=== PATIENT | male | born 1980 | race Hispanic/Latino ===

== ENCOUNTER 2023-08-23 06:07 | Day surgery (SDC) | payer OTHER ==
[2023-08-16 09:29] VITALS: BMI 33.7
[2023-08-23] MEDS ORDERED: Sodium Chloride 0.9% 100 ML ONE (06:35)
[2023-08-23] MEDS ORDERED: CEFAZOLIN 2 GM VIAL ONE (06:35)
[2023-08-23] MEDS ORDERED: Bupivacaine PF 0.5% 30 ML VIAL ONE (06:37)
[2023-08-23] MEDS ORDERED: EPINEPHrine 1 MG/ML VIAL ONE (06:37)
[2023-08-23] MEDS ORDERED: PROPOFOL 20 ML ONE (06:41)
[2023-08-23] MEDS ORDERED: fentaNYL PF 100 MCG/2 ML SYRINGE ONE (06:41)
[2023-08-23] MEDS ORDERED: Ondansetron PF 4 MG/2 ML Vial ONE ×2 (06:41→08:50)
[2023-08-23] MEDS ORDERED: Dexamethasone 20 MG/5 ML VIAL ONE (06:41)
[2023-08-23] MEDS ORDERED: Midazolam HCl 2 mg/2 ml Vial ONE ×2 (06:41→07:03)
[2023-08-23] MEDS ORDERED: Lidocaine 1% PF 5 ML VIAL ONE (06:41)
[2023-08-23] MEDS ORDERED: Lidocaine 2% 6 ML (Jelly) SYR ONE (06:43)
[2023-08-23] MEDS ORDERED: Sevoflurane 250 ML INH ANEST BOTTLE ONE (06:45)
[2023-08-23] MEDS ORDERED: Acetaminophen 500 MG TAB ONE (07:03)
[2023-08-23] MEDS ORDERED: Famotidine/PF 20 mg/2ml Vial ONE (07:04)
[2023-08-23] MEDS ORDERED: ePHEDrine Sulfate 50 MG/10 ML VIAL ONE (07:44)
[2023-08-23] MEDS ORDERED: Succinylcholine 200 MG/10 ml SYRINGE FS ONE (07:46)
[2023-08-23] MEDS ORDERED: Ketorolac Tromethamine 30 MG (1 mL) VIAL ONE (07:57)
[2023-08-23] MEDS ORDERED: fentaNYL 50 mcg/mL 1 mL Vial ONE (08:50)
[2023-08-23] MEDS ORDERED: oxyCODONE 5 MG TAB ONE (09:54)
== END 2023-08-23 10:45 | disposition home or self-care (01) ==
LOC: SDC 06:07
PROVIDERS: ATTEND Surgery
PROC: 0WUF0JZ Supplement Abdominal Wall with Synthetic Substitute, Open Approach (ICD-10-PCS; principal; 2023-08-23)
DX: K42.9 Umbilical hernia without obstruction or gangrene (principal)
CPT/HCPCS: C1889; J0171; J1100; J1885; J2250; J2405; J2704; J3010; J3490; S0020; S0028

== ENCOUNTER 2025-08-09 02:53 | Inpatient (IN) | payer OTHER, SELFPAY ==
[2025-08-09] MEDS ORDERED: Calcium Carbonate 500 MG ChewTAB PO PRN (04:27)
[2025-08-09] MEDS ORDERED: Ondansetron PF 4 MG/2 ML Vial IVP PRN (04:27)
[2025-08-09] MEDS ORDERED: Melatonin 3 MG TAB PO PRN (04:27)
[2025-08-09] MEDS ORDERED: Guaifenesin DM 100-10/5 ML UDCUP PO PRN (04:27)
[2025-08-09] MEDS ORDERED: Electrolyte Replacement Protocol 1 EACH FS SCH (04:30)
[2025-08-09] MEDS: Acetaminophen/Codeine 30-300mg Tablet PO PRN (04:56)
[2025-08-09 05:21] LABS: #Basophils 0.05 10x3/uL (0.0-0.2); #Eosinophils 0.26 10x3/uL (0.0-0.7); #Monocytes 2.31 10x3/uL (0.11-0.59); #Neutrophils 18.01 10x3/uL (1.40-6.50); %Basophils 0.2 % (0.0-1.0); %Eosinophils 1.2 % (0.0-10.0); %Lymphocytes 6.0 % (21.0-51.0); %Monocytes 10.3 % (0.0-10.0); %Neutrophils 80.7 % (42.0-75.0); Hematocrit 38.0 % (42.0-52.0); Hemoglobin 13.0 g/dL (14.0-18.0); Mean Corpuscular Hemoglobin 31.2 pg (27.0-31.0); Mean Corpuscular Volume 91.1 fL (78.0-98.0); Platelet Count 326 10x3/uL (130-400); Red Blood Cell (RBC) Count 4.17 mill/uL (4.70-6.10); White Blood Cell (WBC) Count 22.34 10x3/uL (4.8-10.8)
[2025-08-09 05:35] LABS: ALT (SGPT) 11 U/L (Less than 45); AST (SGOT) 15 U/L (11-34); Albumin 2.8 g/dL (3.1-4.5); Alkaline Phosphatase 112 U/L (40-110); Anion Gap 14 mmol/L (10-20); BUN (Urea Nitrogen) 8 mg/dL (8.9-20.6); Bilirubin, Total 0.9 mg/dL (0.3-1.2); Calc. Creatinine Clearance 188 mL/min (70-130); Calcium 8.4 mg/dL (7.8-10.44); Carbon Dioxide 23 mmol/L (22-29); Chloride 106 mmol/L (98-107); Globulin 3.8 g/dL (2.4-3.5); Glucose 113 mg/dL (70-105); Potassium 3.8 mmol/L (3.5-5.1); Sodium 139 mmol/L (136-145)
[2025-08-09] MEDS ORDERED: Potassium Chloride 20 MEQ in Premix 1 BAG IVPB PRN (05:45)
[2025-08-09] MEDS ORDERED: PHOS-NAK 1 PKT PACK PO PRN (05:45)
[2025-08-09] MEDS ORDERED: Magnesium Sulfate In Water 4 GM in Premix 1 BAG IVPB PRN (05:45)
[2025-08-09] MEDS: BIKTARVY 50-200-25 MG TABLET PO SCH (08:21)
[2025-08-09 13:00] LABS: Reference Lab Name LABCORP
[2025-08-10 05:10] LABS: #Basophils 0.04 10x3/uL (0.0-0.2); #Eosinophils 0.39 10x3/uL (0.0-0.7); #Monocytes 2.40 10x3/uL (0.11-0.59); #Neutrophils 17.63 10x3/uL (1.40-6.50); %Basophils 0.2 % (0.0-1.0); %Eosinophils 1.7 % (0.0-10.0); %Lymphocytes 10.1 % (21.0-51.0); %Monocytes 10.3 % (0.0-10.0); %Neutrophils 75.3 % (42.0-75.0); Hematocrit 34.7 % (42.0-52.0); Hemoglobin 11.7 g/dL (14.0-18.0); Mean Corpuscular Hemoglobin 30.9 pg (27.0-31.0); Mean Corpuscular Volume 91.6 fL (78.0-98.0); Platelet Count 338 10x3/uL (130-400); Red Blood Cell (RBC) Count 3.79 mill/uL (4.70-6.10); White Blood Cell (WBC) Count 23.38 10x3/uL (4.8-10.8)
[2025-08-10 05:35] LABS: ALT (SGPT) 14 U/L (Less than 45); AST (SGOT) 16 U/L (11-34); Albumin 2.6 g/dL (3.1-4.5); Alkaline Phosphatase 129 U/L (40-110); Anion Gap 16 mmol/L (10-20); BUN (Urea Nitrogen) 9 mg/dL (8.9-20.6); Bilirubin, Total 0.6 mg/dL (0.3-1.2); Calc. Creatinine Clearance 134 mL/min (70-130); Calcium 8.5 mg/dL (7.8-10.44); Carbon Dioxide 22 mmol/L (22-29); Chloride 98 mmol/L (98-107); Globulin 3.7 g/dL (2.4-3.5); Glucose 107 mg/dL (70-105); Magnesium 1.9 mg/dL (1.6-2.6); Potassium 3.6 mmol/L (3.5-5.1); Sodium 132 mmol/L (136-145)
[2025-08-10 11:11] LABS: Syphilis Antibody Index 0.07 S/CO (<1.00 Non-Reactive)
[2025-08-10] MEDS ORDERED: Iopamidol-370 76% 500 ML MDV (1 ML CHARGE) ONE (12:25)
[2025-08-11] MEDS ORDERED: Bupivacaine 0.25% HCL 30 ML VIAL ONE (06:50)
[2025-08-11 07:08] LABS: #Basophils 0.04 10x3/uL (0.0-0.2); #Eosinophils 0.35 10x3/uL (0.0-0.7); #Monocytes 1.34 10x3/uL (0.11-0.59); #Neutrophils 9.60 10x3/uL (1.40-6.50); %Basophils 0.3 % (0.0-1.0); %Eosinophils 2.6 % (0.0-10.0); %Lymphocytes 14.3 % (21.0-51.0); %Monocytes 9.8 % (0.0-10.0); %Neutrophils 70.3 % (42.0-75.0); Hematocrit 38.9 % (42.0-52.0); Hemoglobin 12.8 g/dL (14.0-18.0); Mean Corpuscular Hemoglobin 30.4 pg (27.0-31.0); Mean Corpuscular Volume 92.4 fL (78.0-98.0); Platelet Count 401 10x3/uL (130-400); Red Blood Cell (RBC) Count 4.21 mill/uL (4.70-6.10); White Blood Cell (WBC) Count 13.66 10x3/uL (4.8-10.8)
[2025-08-11 07:17] LABS: Anion Gap 14 mmol/L (10-20); BUN (Urea Nitrogen) 9 mg/dL (8.9-20.6); Calc. Creatinine Clearance 162 mL/min (70-130); Calcium 8.8 mg/dL (7.8-10.44); Carbon Dioxide 26 mmol/L (22-29); Chloride 100 mmol/L (98-107); Glucose 124 mg/dL (70-105); Potassium 3.6 mmol/L (3.5-5.1); Sodium 136 mmol/L (136-145)
[2025-08-11] MEDS ORDERED: fentaNYL PF 100 MCG/2 ML SYRINGE ONE (08:37)
[2025-08-11] MEDS ORDERED: Rocuronium Bromide 10 MG/ML (10ML VIAL) ONE (08:37)
[2025-08-11] MEDS ORDERED: PROPOFOL 20 ML ONE (08:37)
[2025-08-11] MEDS ORDERED: Ondansetron PF 4 MG/2 ML Vial ONE (09:06)
[2025-08-11] MEDS ORDERED: SUGAMMADEX SODIUM 200 MG/2 ML VIAL ONE ×2 (09:23→09:30)
[2025-08-11 14:37] LABS: %CD4 Pos. Lymph 17.6 % (30.8-58.5); Absolute CD4 334 /uL (359-1519); Lymphocytes/Gated Cell Count 1.9 x10E3/uL (0.7-3.1); Total Lymphocyte 8 % (Not Estab.); WBC Total Count 23.7 x10E3/uL (3.4-10.8)
[2025-08-11 16:31] LABS: Reference Lab Name LABCORP
[2025-08-11 16:38] LABS: INR-International Normal Ratio 1.2; PTT 35.5 sec (22.9-36.1); Prothrombin Time 15.4 sec (12.0-14.7)
[2025-08-12 04:57] LABS: #Basophils 0.05 10x3/uL (0.0-0.2); #Eosinophils 0.36 10x3/uL (0.0-0.7); #Monocytes 0.88 10x3/uL (0.11-0.59); #Neutrophils 4.68 10x3/uL (1.40-6.50); %Basophils 0.6 % (0.0-1.0); %Eosinophils 4.2 % (0.0-10.0); %Lymphocytes 26.9 % (21.0-51.0); %Monocytes 10.2 % (0.0-10.0); %Neutrophils 54.4 % (42.0-75.0); Hematocrit 35.7 % (42.0-52.0); Hemoglobin 11.5 g/dL (14.0-18.0); Mean Corpuscular Hemoglobin 30.2 pg (27.0-31.0); Mean Corpuscular Volume 93.7 fL (78.0-98.0); Platelet Count 388 10x3/uL (130-400); Red Blood Cell (RBC) Count 3.81 mill/uL (4.70-6.10); White Blood Cell (WBC) Count 8.60 10x3/uL (4.8-10.8)
[2025-08-12 05:17] LABS: ALT (SGPT) 31 U/L (Less than 45); AST (SGOT) 33 U/L (11-34); Albumin 2.6 g/dL (3.1-4.5); Alkaline Phosphatase 109 U/L (40-110); Anion Gap 12 mmol/L (10-20); BUN (Urea Nitrogen) 13 mg/dL (8.9-20.6); Bilirubin, Total 0.2 mg/dL (0.3-1.2); Calc. Creatinine Clearance 138 mL/min (70-130); Calcium 8.7 mg/dL (7.8-10.44); Carbon Dioxide 27 mmol/L (22-29); Chloride 103 mmol/L (98-107); Globulin 3.8 g/dL (2.4-3.5); Glucose 111 mg/dL (70-105); Magnesium 2.2 mg/dL (1.6-2.6); Potassium 4.0 mmol/L (3.5-5.1); Sodium 138 mmol/L (136-145)
[2025-08-12] MEDS: Acetaminophen 325 MG TAB PO PRN (05:20)
[2025-08-12] MEDS ORDERED: Sodium Bicarbonate 2.5 MEQ/5 ML SDV ONE (08:11)
[2025-08-12] MEDS ORDERED: Iopamidol 370 76% 100 ML VIAL ONE (13:35)
[2025-08-12] MEDS: HYDROcodone/Acetaminophen 5/325 mg Tablet PO PRN (15:54)
[2025-08-12] MEDS: Senokot S 8.6-50 MG TAB PO PRN (15:57)
[2025-08-13 05:24] LABS: Hematocrit 37.1 % (42.0-52.0); Hemoglobin 12.3 g/dL (14.0-18.0); Mean Corpuscular Hemoglobin 30.4 pg (27.0-31.0); Mean Corpuscular Volume 91.8 fL (78.0-98.0); Platelet Count 418 10x3/uL (130-400); Red Blood Cell (RBC) Count 4.04 mill/uL (4.70-6.10); White Blood Cell (WBC) Count 8.05 10x3/uL (4.8-10.8)
[2025-08-13 05:38] LABS: ALT (SGPT) 31 U/L (Less than 45); AST (SGOT) 33 U/L (11-34); Albumin 2.8 g/dL (3.1-4.5); Alkaline Phosphatase 95 U/L (40-110); Anion Gap 13 mmol/L (10-20); BUN (Urea Nitrogen) 11 mg/dL (8.9-20.6); Bilirubin, Total 0.2 mg/dL (0.3-1.2); Calc. Creatinine Clearance 149 mL/min (70-130); Calcium 8.6 mg/dL (7.8-10.44); Carbon Dioxide 25 mmol/L (22-29); Chloride 101 mmol/L (98-107); Globulin 3.9 g/dL (2.4-3.5); Glucose 85 mg/dL (70-105); Magnesium 2.0 mg/dL (1.6-2.6); Potassium 3.9 mmol/L (3.5-5.1); Sodium 135 mmol/L (136-145)
[2025-08-13 05:56] LABS: Platelet Adequacy Comment Platelets Increased; RBC Morphology Within Normal Limits; Smudge Cells 11.0 %
[2025-08-13 11:47] VITALS: BP 128/85; TEMP 97.3
== END 2025-08-13 12:30 | disposition home or self-care (01) | DRG 872 ==
LOC: OBS 03:45
PROVIDERS: ADMIT Internal Medicine; ATTEND Family Medicine
PROC: 0D9P30Z Drainage of Rectum with Drainage Device, Percutaneous Approach (ICD-10-PCS; principal; 2025-08-12)
DX: A41.9 Sepsis, unspecified organism (principal); K61.1 Rectal abscess; Z21 Asymptomatic human immunodeficiency virus [HIV] infection status; N41.9 Inflammatory disease of prostate, unspecified; Z79.899 Other long term (current) drug therapy; Z98.890 Other specified postprocedural states
CPT/HCPCS: 36415; 49406; 74177; 77002; 80048; 80053; 83735; 84100; 85025; 85060; 85610; 85730; 86361; 86780; 87070; 87205; 89051; C1729; C1769; J0169; J0665; J0692; J2250; J2405; J2543; J2704; J3010; Q9967